=== PATIENT | male | born 1980 | race Asian ===

== ENCOUNTER 2017-07-23 13:15 | Emergency (ER) | payer OTHER ==
--- NOTE | 2017-07-23 13:50 | ER Document Report ---
ED Substance Abuse / Acc. OD - General Chief Complaint: Drug Abuse Stated Complaint: POSSIBLE OVERDOSE Time Seen by Provider: 07/23/17 13:33 Notes: The patient is a 36-year-old male, polysubstance abuser, presents after he was found unresponsive by his mom 1 hour prior to arrival. He used cocaine and heroin. When EMS arrived, he was more awake. Patient denies any new drug dealers, increased bags of heroin or coke or any fentanyl use. Patient is awake and said that he follows with [facility] and is trying to get into rehab. Mom is at bedside and said that he keeps saying that he will stop using drugs, but he never does. Patient denies suicidal ideation, homicidal ideation, chest pain , shortness of breath, nausea, vomiting, diarrhea or constipation. TRAVEL OUTSIDE OF THE [place] IN LAST 30 DAYS: No - Related Data Allergies/Adverse Reactions: No Known Allergies Allergy (Verified 05/06/14 18:48) Past Medical History - General Information source: Patient, Parent - Social History Smoking Status: Current Every Day Smoker Chew tobacco use (# tins/day): No Frequency of alcohol use: Occasional Drug Abuse: Cocaine, Heroin Family History: Reviewed & Not Pertinent Patient has suicidal ideation: No Patient has homicidal ideation: No - Past Medical History Cardiac Medical History: Reports: Hx Hypertension Renal/ Medical History: Denies: Hx Peritoneal Dialysis Psychiatric Medical History: Reports: Hx Depression Surgical Hx: Negative Review of Systems - Review of Systems Notes: REVIEW OF SYSTEMS: CONSTITUTIONAL: -fevers, -chills EENT: -eye pain, -difficulty swallowing, -nasal congestion CARDIOVASCULAR:-chest pain, -syncope. RESPIRATORY: -cough, -SOB GASTROINTESTINAL: -abdominal pain, - nausea, -vomiting, -diarrhea GENITOURINARY: -dysuria, -hematuria MUSCULOSKELETAL: -back pain, -neck pain SKIN: -rash or skin lesions. HEMATOLOGIC: -easy bruising or bleeding. LYMPHATIC: -swollen, enlarged glands. NEUROLOGICAL: -altered mental status or loss of consciousness, -headache, - neurologic symptoms PSYCHIATRIC: -anxiety, -depression. ALL OTHER SYSTEMS REVIEWED AND NEGATIVE. Physical Exam - Vital signs Vitals: Temp Pulse Resp BP Pulse Ox 98.3 F 16 L 106 H 104/73 96 07/23/17 13:27 07/23/17 13:27 07/23/17 13:27 07/23/17 13:27 07/23/17 13:27 - Notes Notes: PHYSICAL EXAMINATION: GENERAL: Well-appearing, well-nourished and in no acute distress. HEAD: Atraumatic, normocephalic. EYES: Pupils equal round and reactive to light, extraocular movements intact, sclera anicteric, conjunctiva are normal. ENT: nares patent, oropharynx clear without exudates. Moist mucous membranes. NECK: Normal range of motion, supple without lymphadenopathy LUNGS: Breath sounds clear to auscultation bilaterally and equal. No wheezes rales or rhonchi. HEART: Regular rate and rhythm without murmurs ABDOMEN: Soft, nontender, normoactive bowel sounds. No guarding, no rebound. No masses appreciated. EXTREMITIES: Normal range of motion, no pitting or edema. No cyanosis. NEUROLOGICAL: Cranial nerves grossly intact. Normal speech, normal gait. Normal sensory and motor exams. PSYCH: Normal mood, normal affect. SKIN: Warm, Dry, normal turgor, no rashes or lesions noted. Course - Re-evaluation Re-evalutation: 07/23/17 15:08 Pt monitored in the ER and he is back to baseline. He is not sleepy and has not had any apneic or hypoxic episodes. Patient said that he was not trying to kill himself and that he was only trying to get high. Urged patient to obtain detox help and gave [facility] referral. Also provided mom with a prescription of Narcan and instructed her on how to use Narcan. - Vital Signs Vital signs: Temp Pulse Resp BP Pulse Ox 98.3 F 16 L 15 100/70 97 07/23/17 13:27 07/23/17 13:27 07/23/17 14:30 07/23/17 14:30 07/23/17 14:30 Discharge - Discharge Clinical Impression: Polysubstance abuse Condition: Stable Disposition: HOME, SELF-CARE Additional Instructions: COCAINE ABUSE: Cocaine causes many dangerous medical problems. Problems can occur even with "usual" amounts. Cocaine affects judgement, creating a sense of invulnerability. Cocaine users often make bad decisions that seem "great" at the time. Most cocaine users eventually will be hurt by bad job performance, damaged personal relations, crime, and unsafe sexual practices. Toxic effects of cocaine can include seizures, hallucinations, delusions, high blood pressure, heart damage, or sudden . There's always the risk of a "bad batch." But heart attacks, brain hemorrhages, or cardiac arrest can occur unpredictably even with "normal" use. Injection of cocaine is risky for abscesses, endocarditis (heart infection) , pneumonia, and AIDS. Withdrawal from cocaine often causes anxiety and drug cravings. Some users become paranoid and psychotic. Many treatment programs are available, but you must make the decision to quit. Medication can be prescribed to control the symptoms of cocaine toxicity (beta blockers or benzodiazepines). Withdrawal symptoms may require tranquilizers. NARCOTIC / OPIOD ABUSE: Narcotics and opiods are pain-relieving drugs that are often abused. They are addicting. Narcotics cause euphoria, but it often takes increasing amounts to "feel good" and avoid withdrawal symptoms. Overdose of narcotics causes small pupils, coma, and decreased breathing. It's a common cause of . Purity of street narcotics is unpredictable. Injection of narcotics is risky for abscesses, endocarditis (heart infection), pneumonia, and AIDS. Withdrawal from narcotics causes goose bumps, watery mouth, sweating, nasal congestion, muscle aches, abdominal cramps, vomiting, and diarrhea. There 's often restlessness and confusion. Treatment programs are available, but you must make the decision to quit. Medication (such as clonidine) can be prescribed to control the symptoms of withdrawal. OVERDOSE / INGESTION: You have taken more medication than you should have. After your evaluation and care, it is felt that your overdose is not likely to be harmful or of any significant consequences to you and you are being discharged. In the future, you should be careful not to take more medications than what is prescribed for you. Although your overdose does not seem to be of any danger to you at this time, if you develop any unusual or unexpected symptoms after your discharge, you should return to the Emergency Department immediately for re-evaluation. INSTRUCTIONS FOR HOME CARE FOLLOWING DRUG OVERDOSAGE: The doctor feels it's safe for you to go home. You will need to be observed. If charcoal and a laxative was given to you, expect some loose black stools soon. Take no medications unless approved by a physician, including alcohol. If drowsy, lie on your stomach or side for sleeping to avoid aspiration if vomiting occurs. Take only liquids by mouth until there is no more nausea. FOR THE OBSERVER: Observe the patient for the next 24 hours and call or go to the hospital if any of the following are noted: prolonged or repeated vomiting, difficulty in arousing, convulsions (seizures or fits), fever, persistent cough, breathing that is too slow or too rapid, or confused or bizarre behavior. If a counselling visit has been arranged, make sure the patient attends. Call the physician or poison control if you have questions. FOLLOW-UP CARE: If you have been referred to a physician for follow-up care, call the physician s office for an appointment as you were instructed or within the next two days. If you experience worsening or a significant change in your symptoms, notify the physician immediately or return to the Emergency Department at any time for re-evaluation. Prescriptions: Naloxone HCl [Narcan] 4 mg NS ONCE PRN #1 unit PRN Reason: Referrals: [facility] [Outside] - Follow up as needed
[2017-07-23 15:16] VITALS: BP 98/70
== END 2017-07-23 15:04 | disposition home or self-care (01) ==
LOC: ER 13:15
DX: F19.10 Other psychoactive substance abuse, uncomplicated (principal); F17.200 Nicotine dependence, unspecified, uncomplicated
CPT/HCPCS: 99285

== ENCOUNTER 2017-11-01 17:18 | Emergency (ER) | payer SELFPAY ==
[2017-11-01 18:18] LABS: ABSOLUTE LYMPHOCYTES (AUTO) 1.1 10^3/uL (0.5-4.7); ABSOLUTE MONOCYTES (AUTO) 0.4 10^3/uL (0.1-1.4); ABSOLUTE NEUT (AUTO) 3.8 10^3/uL (1.7-8.2); BASOPHILS % (AUTO) 0.4 % (0-2); EOSINOPHILS % (AUTO) 0.6 % (0-6); HEMATOCRIT 41.7 % (37.9-51.0); HEMOGLOBIN 14.3 g/dL (13.5-17.0); HGB HCT DIFFERENCE 1.2; LYMPHOCYTES % (AUTO) 20.8 % (13-45); MEAN CORPUSCULAR HEMOGLOBIN 30.8 pg (27.0-33.4); MEAN CORPUSCULAR HGB CONC 34.2 g/dL (32.0-36.0); MEAN CORPUSCULAR VOLUME 90 fl (80-97); MONOCYTES % (AUTO) 8.1 % (3-13); RED BLOOD COUNT 4.63 10^6/uL (4.35-5.55); RED CELL DISTRIBUTION WIDTH 13.1 % (11.5-14.0); SEGMENTED NEUTROPHILS % (AUTO) 70.1 % (42-78); WHITE BLOOD COUNT 5.4 10^3/uL (4.0-10.5)
--- NOTE | 2017-11-01 18:22 | ER Document Report ---
ED Psych Disorder / Suicide <BEATRICE VILLA - Last Filed: 11/02/17 11:06> <JEFF BAUTISTA - Last Filed: 11/02/17 11:30> - General Mode of Arrival: Medic Information source: Patient, Relative - Mother and younger brother Cannot obtain history due to: Other - Agitated TRAVEL OUTSIDE OF THE [place] IN LAST 30 DAYS: No - HPI Patient complains to provider of: Agitated, Bizarre behavior, Hallucinating, Overdose Onset: This morning Onset was: Cannot confirm Quality of pain: No pain Suicide Risk Factors: Hallucinations, Schizophrenia, Substance abuse Overdose of: Other - Seroquel Normal mood: No - Patient is agitated Associated symptoms: Agitated, Anxious, Irritable Similar symptoms previously: No Recently seen / treated by doctor: No <ALEXIA GUZMAN - Last Filed: 11/04/17 05:50> - General Chief Complaint: Psych Problem Stated Complaint: PSYCHE EVAL Time Seen by Provider: 11/01/17 18:21 - Related Data Allergies/Adverse Reactions: No Known Allergies Allergy (Verified 11/01/17 17:19) Home Medications: Current Home Medications Fluoxetine HCl [Prozac 20 mg Capsule] 60 mg PO DAILY 11/01/17 [History] Lisinopril [Prinivil] 20 mg PO DAILY 11/01/17 [History] Olanzapine [Zyprexa] 15 mg PO QHS 11/01/17 [History] Quetiapine Fumarate [Seroquel] 100 mg PO HSP PRN 11/01/17 [History] Past Medical History - General Information source: Patient, Relative - Social History Smoking Status: Current Every Day Smoker Cigarette use (# per day): Yes Smoking Education Provided: No - Patient not mentally stabilized for this discussion Frequency of alcohol use: Occasional Drug Abuse: Cocaine Lives with: Family Family History: Reviewed & Not Pertinent Patient has suicidal ideation: No Patient has homicidal ideation: No - Past Medical History Cardiac Medical History: Reports: Hx Hypertension Pulmonary Medical History: Reports: None EENT Medical History: Reports: None Endocrine Medical History: Reports: None Renal/ Medical History: Reports: None. Denies: Hx Peritoneal Dialysis Malignancy Medical History: Reports None GI Medical History: Reports: None Musculoskeltal Medical History: Reports None Skin Medical History: Reports None Psychiatric Medical History: Reports: Hx Depression, Hx Schizophrenia Traumatic Medical History: Reports: None Infectious Medical History: Reports: None Past Surgical History: Reports: None <NANO GUZMANE E - Last Filed: 11/04/17 05:50> Review of Systems - Review of Systems -: Yes ROS unobtainable due to patient's medical condition <NANO GUZMANE E - Last Filed: 11/04/17 05:50> Physical Exam <DAISYBEATRICE - Last Filed: 11/02/17 11:06> <JEFF BAUTISTA - Last Filed: 11/02/17 11:30> <JAYDON GUZMANLENE E - Last Filed: 11/04/17 05:50> - Vital signs Vitals: Pulse Ox 97 11/01/17 17:58 Heart rate 101 pulse ox 99 RA bp117/75 (NANO GUZMANE Tessa) - Notes Notes: PHYSICAL EXAMINATION: GENERAL: It is in bed admitting agitation with jerky movements of his torso arms and legs. Nontoxic-appearing HEAD: Atraumatic, normocephalic. EYES: Pupils equal round and reactive to light, extraocular movements intact, sclera anicteric, conjunctiva are normal. ENT: Nares patent, oropharynx clear without exudates. Moist mucous membranes. NECK: Normal range of motion, supple without lymphadenopathy LUNGS: Breath sounds clear to auscultation bilaterally and equal. No wheezes rales or rhonchi. HEART: Tachy rate and rhythm without murmurs ABDOMEN: Soft, nontender, nondistended abdomen. No guarding, no rebound. No masses appreciated. Musculoskeletal: Normal range of motion, no pitting or edema. No cyanosis. NEUROLOGICAL: Cranial nerves grossly intact. Normal speech. Normal sensory. PSYCH: Patient is cooperative and answering questions. He also is agitated, flailing about in bed. SKIN: Warm, dry, normal turgor, no rashes or lesions noted. (NANO GUZMANE E) Course - Laboratory Result Diagrams: 11/01/17 17:53 11/01/17 17:53 <NICBEATRICE SANTOYO - Last Filed: 11/02/17 11:06> - Laboratory Result Diagrams: 11/01/17 17:53 11/01/17 17:53 <JEFF BAUTISTA - Last Filed: 11/02/17 11:30> - Laboratory Result Diagrams: 11/01/17 17:53 11/01/17 17:53 - EKG Interpretation by Me EKG shows normal: Sinus rhythm Rate: Tachycardia Voltage: Increased voltage, Consistant with LVH <ALEXIA GUZMAN - Last Filed: 11/04/17 05:50> - Re-evaluation Re-evalutation: 11/01/17 21:23 The patient nor the family knew the name of the medication that the patient took 8 pills of prior to arrival today. I did send mom home to get his pills. When she presented they were all stuffed into 1 bottle except for his lisinopril which is in a separate bottle. The pill was round yellow with 261 on and when I looked it up it was Seroquel. I did call poison control and I talked to them. They said that he was having dystonic reaction most likely with his jerky body movements. They said benzodiazepines would be a good choice to medicate him with. He also said he was at risk for seizure. At this time patient is quietly laying in bed after 2 doses of Ativan. He is hooked up to a surveillance system monitor his vital signs stable. I explained to his mother and his brother that he will have to see the psychiatrist in the morning. (ALEXIA GUZMAN) - Vital Signs Vital signs: Temp Pulse Resp BP Pulse Ox 97.8 F 88 16 120/75 100 11/02/17 11:41 11/02/17 11:41 11/02/17 11:41 11/02/17 11:41 11/02/17 11:41 - Laboratory Laboratory results interpreted by me: 11/01/17 11/01/17 17:53 21:25 Potassium 3.5 L Glucose 123 H AST 14 L Total Protein 8.4 H Urine Blood MODERATE H Salicylates < 1.0 L Acetaminophen < 10 L Critical Care Note <BEATRICE VILLA - Last Filed: 11/02/17 11:06> <JEFF BAUTISTA - Last Filed: 11/02/17 11:30> - Critical Care Note Total time excluding time spent on procedures (mins): 30 <ALEXIA GUZMAN - Last Filed: 11/04/17 05:50> - Critical Care Note Comments: Critical care time for continual reassessment of the patient, looking up the pill identification for his overdose, discussions with the patient's mother and brother, discussions with poison control and review of old records. (ALEXIA GUZMAN) Discharge <BEATRICE VILLA - Last Filed: 11/02/17 11:06> <MICHELEJEFF - Last Filed: 11/02/17 11:30> <ALEXIA GUZMAN - Last Filed: 11/04/17 05:50> - Discharge Clinical Impression: Overdose, Hallucinations Condition: Stable Disposition: HOME, SELF-CARE Additional Instructions: Overdose / Ingestion You have taken more medication than you should have. After your evaluation and care, it is felt that your overdose is not likely to be harmful or of any significant consequences to you and you are being discharged. In the future, you should be careful not to take more medications than what is prescribed for you. Although your overdose does not seem to be of any danger to you at this time, if you develop any unusual or unexpected symptoms after your discharge, you should return to the Emergency Department immediately for re-evaluation. Hallucinations You seem to be having hallucinations. Hallucinations are seeing, hearing, or feeling things that don't exist. These symptoms commonly occur with drug abuse and schizophrenia. Drugs like PCP, LSD, MDMA, peyote, and "psychedelic mushrooms" can cause frightening hallucinations. Users of methamphetamine or crack cocaine often see and feel bugs crawling on their skin. Patients with schizophrenia may hear voices that no one else can hear. The delusions of schizophrenia often involve conspiracies or relationships that are not real. When symptoms are due to drug abuse, the mental state usually improves as the drug wears off. Someone you trust should be with you until you are better, to protect you and calm your fears. Tranquilizer medicine is helpful at controlling hallucinations, anxiety, and deluded thoughts. Get a proper diet and enough sleep. Most patients do very well when they get proper medical treatment and social support. You should return at once if your symptoms get worse, if you are having suicidal thoughts or thoughts about hurting others, or if you feel that you are in danger. Follow-up: You have an appointment scheduled at your existing outpatient provider, [facility], on 11/09/17. You should go directly from the emergency department to [facility] as a walk in upon discharge. If your symptoms continue or worsen you should contact you physician(s), utilize mobile crisis or return to the emergency department. Forms: Return to Work Referrals: [facility] [Provider Group] - 11/02/17 12:00 pm
[2017-11-01] MEDS ORDERED: LORAZEPAM INJ 2 MG/1 ML VIAL IV ONE ×2 (18:35→20:19)
[2017-11-01 18:40] LABS: ALANINE AMINOTRANSFERASE 34 U/L (21-72); ALKALINE PHOSPHATASE 69 U/L (38-126); ANION GAP 18 (5-19); ASPARTATE AMINO TRANSFERASE 14 U/L (17-59); BILIRUBIN,DIRECT 0.4 mg/dL (0.0-0.4); BILIRUBIN,TOTAL 0.8 mg/dL (0.2-1.3); BLOOD UREA NITROGEN 12 mg/dL (7-20); CALCIUM 9.8 mg/dL (8.4-10.2); CARBON DIOXIDE 23 mmol/L (22-30); CHLORIDE 102 mmol/L (98-107); CREATININE RESULT 0.72 mg/dL (0.52-1.25); GLUCOSE 123 mg/dL (75-110); POTASSIUM 3.5 mmol/L (3.6-5.0); SODIUM 142.5 mmol/L (137-145); TOTAL PROTEIN 8.4 g/dL (6.3-8.2)
[2017-11-01 18:41] LABS: ALCOHOL < 10 mg/dL (NONE DETECTED)
[2017-11-01 21:57] LABS: APPEARANCE,URINE CLEAR; BILIRUBIN,URINE NEGATIVE (NEGATIVE); GLUCOSE, URINE NEGATIVE (NEGATIVE); KETONES,URINE NEGATIVE (NEGATIVE); LEUKOCYTE ESTERASE,URINE NEGATIVE (NEGATIVE); NITRITE,URINE NEGATIVE (NEGATIVE); PROTEIN,URINE NEGATIVE (NEGATIVE); URINE SPECIFIC GRAVITY 1.003; UROBILINOGEN,URINE NEGATIVE mg/dL (<2.0)
[2017-11-01 22:10] LABS: URINE BARBITURATES SCREEN NEGATIVE; URINE METHADONE SCREEN NEGATIVE; URINE PHENCYCLIDINE SCREEN NEGATIVE
[2017-11-01 22:56] LABS: URINE OPIATES LOW UNCONFIRMED POSITIVE
--- NOTE | 2017-11-01 23:11 | EKG REPORT ---
SEVERITY:- ABNORMAL ECG - SINUS TACHYCARDIA PROBABLE LEFT VENTRICULAR HYPERTROPHY : Confirmed by: Michelle Becker 01-Nov-2017 23:10:33
[2017-11-01] MEDS ORDERED: RINGERS SOLUTION,LACTATED 1,000 ML IV ONE (23:51)
--- NOTE | 2017-11-02 11:17 | ER Document Report ---
Doctor's Note Notes: 11/02/17 11:15 Rounds: Chart reviewed and patient interviewed. Patient is sleeping, but awakens easily. Carries on a normal conversation. Says he took excess Seroquel because he wanted to sleep. Does not think it helped much. Patient has a history of schizophrenia. Has been hearing hallucinations. Vital signs were all normal. Labs were essentially normal. Patient appears to be medically stable for transfer or discharge. Elie Lane MD
[2017-11-02 11:42] VITALS: BP 120/75
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
== END 2017-11-02 11:42 | disposition home or self-care (01) ==
LOC: ER 17:18
DX: T43.591A Poisoning by other antipsychotics and neuroleptics, accidental (unintentional), initial encounter (principal); R44.3 Hallucinations, unspecified; F43.10 Post-traumatic stress disorder, unspecified; F17.210 Nicotine dependence, cigarettes, uncomplicated; I10 Essential (primary) hypertension
CPT/HCPCS: 93005; 96376; 99285; 96375; 96365; 36415; 80307 ×4; 83735; 85025; 80053; 81001; 93010; J2060; J7120

== ENCOUNTER 2019-02-01 10:52 | Emergency (ER) | payer SELFPAY ==
[2019-02-01] MEDS ORDERED: ACETAMINOPHEN 325 MG TABLET PO ONE (11:44)
--- NOTE | 2019-02-01 11:49 | ER Document Report ---
ED Medical Screen (RME) - General Chief Complaint: Head Injury Stated Complaint: HEAD INJURY Time Seen by Provider: 02/01/19 11:47 TRAVEL OUTSIDE OF THE [place] IN LAST 30 DAYS: No - HPI Notes: 02/01/19 11:47 Patient said that 2 days ago he was walking and he slipped and fell and hit his head and passed out. Since then his head has been bothering him and he has been having severe headache. He said the headache is associated with blurry vision, nausea and vomiting. Physical exam apart from tenderness to the left episcopal area of the head is unremarkable. There is no laceration to the scalp. - Related Data Allergies/Adverse Reactions: No Known Allergies Allergy (Verified 02/01/19 11:11) Past Medical History - Social History Chew tobacco use (# tins/day): No Frequency of alcohol use: Occasional Drug Abuse: None - Past Medical History Cardiac Medical History: Reports: Hx Hypertension Renal/ Medical History: Denies: Hx Peritoneal Dialysis Psychiatric Medical History: Reports: Hx Depression, Hx Schizophrenia Physical Exam - Vital signs Vitals: Temp Pulse Resp BP Pulse Ox 99.5 F 100 16 144/102 H 99 02/01/19 11:20 02/01/19 11:20 02/01/19 11:20 02/01/19 11:20 02/01/19 11:20 Course - Vital Signs Vital signs: Temp Pulse Resp BP Pulse Ox 99.5 F 100 16 144/102 H 99 02/01/19 11:20 02/01/19 11:20 02/01/19 11:20 02/01/19 11:20 02/01/19 11:20
[2019-02-01 12:23] LABS: ABSOLUTE EOSINOPHILS # (AUTO) 0.2 10^3/uL (0.0-0.6); ABSOLUTE MONOCYTES (AUTO) 0.4 10^3/uL (0.1-1.4); ABSOLUTE NEUT (AUTO) 3.8 10^3/uL (1.7-8.2); BASOPHILS % (AUTO) 0.2 % (0-2); EOSINOPHILS % (AUTO) 3.8 % (0-6); HEMATOCRIT 38.4 % (37.9-51.0); HEMOGLOBIN 13.4 g/dL (13.5-17.0); LYMPHOCYTES % (AUTO) 18.3 % (13-45); MEAN CORPUSCULAR HEMOGLOBIN 32.8 pg (27.0-33.4); MEAN CORPUSCULAR VOLUME 94 fl (80-97); MONOCYTES % (AUTO) 6.9 % (3-13); PLATELET COUNT 252 10^3/uL (150-450); RED BLOOD COUNT 4.09 10^6/uL (4.35-5.55); RED CELL DISTRIBUTION WIDTH 12.6 % (11.5-14.0); SEGMENTED NEUTROPHILS % (AUTO) 70.8 % (42-78); TOTAL CELLS COUNTED % (AUTO) 100 %; WHITE BLOOD COUNT 5.3 10^3/uL (4.0-10.5)
[2019-02-01 12:26] LABS: PARTIAL THROMBOPLASTIN TIME 25.8 SEC (23.5-35.8); PROTHROMBIN TIME 12.6 SEC (11.4-15.4)
--- NOTE | 2019-02-01 12:36 | RADIOLOGY REPORT (SQ) ---
EXAM DESCRIPTION: CT HEAD WITHOUT COMPLETED DATE/TIME: 02/01/2019 12:27 pm REASON FOR STUDY: Head injury COMPARISON: None. TECHNIQUE: Axial images acquired through the brain without intravenous contrast. Images reviewed wi th bone, brain and subdural windows. Additional sagittal and coronal reconstructions were generated. Images stored on PACS. All CT scanners at this facility use dose modulation, iterative reconstruction, and/or weight based d osing when appropriate to reduce radiation dose to as low as reasonably achievable (ALARA). [facility]: Dose Right [facility]: CareDose [facility]: Dose Right [facility]: Teradose 4D [facility]: Online-OR RADIATION DOSE: CT Rad equipment meets quality standard of care and radiation dose reduction techniq ues were employed. CTDIvol: 53.2 mGy. DLP: 1097 mGy-cm. mGy. LIMITATIONS: None. FINDINGS: VENTRICLES: Normal size and contour. CEREBRUM: No masses. No hemorrhage. No midline shift. No evidence for acute infarction. Normal gra y/white matter differentiation. No areas of low density in the white matter. CEREBELLUM: No masses. No hemorrhage. No alteration of density. No evidence for acute infarction. EXTRAAXIAL SPACES: No fluid collections. No masses. ORBITS AND GLOBE: No intra- or extraconal masses. Normal contour of globe without masses. CALVARIUM: No fracture. PARANASAL SINUSES: No fluid or mucosal thickening. SOFT TISSUES: No mass or hematoma. OTHER: No other significant finding. IMPRESSION: No acute intracranial pathology. EVIDENCE OF ACUTE STROKE: NO. COMMENT: Quality ID # [id number]: Final reports with documentation of one or more dose reduction techniques (e.g., Automated exposure control, adjustment of the mA and/or kV according to patient size, use of iterative reconstruction technique) TECHNICAL DOCUMENTATION: JOB ID: [id number] [employer]- All Rights Reserved Reading location - IP/workstation name: [email or web address]
[2019-02-01 12:42] LABS: ALANINE AMINOTRANSFERASE 58 U/L (21-72); ALBUMIN 4.7 g/dL (3.5-5.0); ALKALINE PHOSPHATASE 47 U/L (38-126); ANION GAP 10 (5-19); ASPARTATE AMINO TRANSFERASE 40 U/L (17-59); BILIRUBIN,DIRECT 0.3 mg/dL (0.0-0.4); BILIRUBIN,TOTAL 0.6 mg/dL (0.2-1.3); BLOOD UREA NITROGEN 7 mg/dL (7-20); CALCIUM 9.9 mg/dL (8.4-10.2); CARBON DIOXIDE 28 mmol/L (22-30); CHLORIDE 100 mmol/L (98-107); GLUCOSE 107 mg/dL (75-110); POTASSIUM 4.2 mmol/L (3.6-5.0); SODIUM 138.2 mmol/L (137-145); TOTAL PROTEIN 7.1 g/dL (6.3-8.2)
--- NOTE | 2019-02-01 14:33 | ER Document Report ---
HPI - HPI Time Seen by Provider: 02/01/19 11:47 Pain Level: 4 Notes: Patient is a 38-year-old male no significant past medical history who presents to the emergency department status post head injury 2 days ago complaining of mild headache and intermittent blurring of his vision. Patient states that he hit the left upper side of his head. Patient states that at this time he currently does not have any pain or issues with his vision. He does not wear any contacts or glasses. Patient states that he tripped 2 days ago and hit his head off of a barstool. Patient states he did not have complete loss of consciousness as was otherwise stated in a previous note. Patient states that he did have one episode of nausea and vomiting thereafter, but that has since resolved. Since then he has been eating and drinking without difficulty. He is urinating normally and having normal bowel movements. He has no other concerns or complaints. Denies any fever, neck pain, changes in vision/speech/mentation/hearing, URI, sore throat, chest pain, palpitations, syncope, cough, shortness of breath, wheeze, dyspnea, abdominal pain, current nausea/vomiting/diarrhea, urinary retention, dysuria, hematuria, loss of control of bowel or bladder, numbness/tingling, saddle anesthesia, muscle paralysis/weakness, or rash. - ROS Systems Reviewed and Negative: Yes All other systems reviewed and negative - DERM Skin Color: Normal Past Medical History - Social History Smoking Status: Current Every Day Smoker Chew tobacco use (# tins/day): No Frequency of alcohol use: Occasional Drug Abuse: None Family History: Reviewed & Not Pertinent Patient has suicidal ideation: No Patient has homicidal ideation: No - Past Medical History Cardiac Medical History: Reports: Hx Hypertension Renal/ Medical History: Denies: Hx Peritoneal Dialysis Psychiatric Medical History: Reports: Hx Depression, Hx Schizophrenia Vertical Provider Document - CONSTITUTIONAL Agree With Documented VS: Yes Notes: PHYSICAL EXAMINATION: GENERAL: Well-appearing, well-nourished and in no acute distress. A&Ox4. Answers questions appropriately. HEAD: Atraumatic, normocephalic. Non-tender. No bogginess/hematoma/bermeo sign . EYES: Pupils equal round and reactive to light, extraocular movements intact, sclera anicteric, conjunctiva are normal. No nystagmus. vis mejia intact. Vision 20/30 b/l and individually performed by myself at bedside. No orbital/facial tenderness. No raccoon eyes. ENT: EAC clear b/l. TM's intact b/l without erythema, fluid, or perforation. Nares patent and without discharge. oropharynx clear without exudates. No tonsilar hypertrophy or erythema. Moist mucous membranes. No sinus tenderness. No hemotympanum/CSF discharge noted. NECK: Normal range of motion, supple without lymphadenopathy. No rigidity/meningismus. No midline tenderness. LUNGS: Breath sounds clear to auscultation bilaterally and equal. No wheezes rales or rhonchi. HEART: Regular rate and rhythm without murmurs, rubs, gallops. ABDOMEN: Soft, nontender, nondistended abdomen. No guarding, no rebound. N ormal bowel sounds present. No CVA tenderness bilaterally. Musculoskeletal: Ext's b/l: FROM to passive/active. Strength 5+/5. No deficits noted. No bony tenderness of extremities. Extremities: No cyanosis, clubbing, or edema b/l. Peripheral pulses 2+. Capillary refill less than 2 seconds. NEUROLOGICAL: NIH 0. GCS 15. Cranial nerves grossly intact. Normal speech, normal gait. Normal sensory, motor exams. Reflexes 2+ b/l. ANNA's negative. Pronator drift negative. Heel/wilhelm, finger/nose wnl. Rhomberg neg. PSYCH: Normal mood, normal affect. SKIN: Warm, Dry, normal turgor, no rashes or lesions noted. - INFECTION CONTROL TRAVEL OUTSIDE OF THE [place] IN LAST 30 DAYS: No Course - Re-evaluation Re-evalutation: 02/01/19 14:30 Patient is an afebrile, well-hydrated, 38-year-old male who presents to the ED with a head injury with intermittent PEREZ's that I suspect to be secondary to post concussive syndrome. Vitals are acceptable without any significant tachycardia, tachypnea, or hypoxia. PE is otherwise unremarkable for any focal neurological deficits. NIH 0, GCS 15, cranial nerves grossly intact, NEXUS negative. CBC, CMP, CT head unremarkable. Patient was given tylenol today. Patient states that he is feeling much better and would like to go home. He is nontoxic- appearing and is tolerating p.o. without any difficulties. Low suspicion for any acute glaucoma, temporal arteritis, meningitis, intracranial hemorrhage, ischemic stroke, or fracture at this time. Patient is aware that this condition can change from initial presentation and that he needs to monitor symptoms closely for any acute changes. Recheck with your PCM/neurologist in 3-5 days. Return to the ED with any worsening/concerning symptoms otherwise as reviewed in discharge. Patient is in agreement. - Vital Signs Vital signs: Temp Pulse Resp BP Pulse Ox 99.5 F 100 16 144/102 H 99 02/01/19 11:20 02/01/19 11:20 02/01/19 11:20 02/01/19 11:20 02/01/19 11:20 - Laboratory Result Diagrams: 02/01/19 12:00 02/01/19 12:00 Laboratory results interpreted by me: 02/01/19 12:00 RBC 4.09 L Hgb 13.4 L Discharge - Discharge Clinical Impression: Post concussion syndrome Head injury Qualifiers: Encounter type: initial encounter Qualified Code(s): S09.90XA - Unspecified injury of head, initial encounter Condition: Stable Disposition: HOME, SELF-CARE Instructions: Post-Concussion Syndrome ([facility]) Additional Instructions: You have been evaluated in the Emergency Department for a head injury and have been diagnosed with a concussion. Concussions can be associated with any of the following symptoms: confusion, sleepiness, memory deficits, nausea, general fatigue, or headaches. The only way to treat these symptoms is complete brain rest. Please follow-up with both your primary physician and a Neurologist in 1-2 weeks to be rechecked. Return to the ER immediately if you experience episodes of passing out, having an unstable or wobbly gait, have uncontrollable headaches or nausea, have blindness/vision changes, or have any other concerning symptoms. Brain Rest: 1. No activity/work/school or phone/TV/computer for at least one week. 2. After a week you can slowly incorporate small tasks like brushing your teeth and other small activities over a couple days. 3. If symptoms return, go back to step 1 and repeat; if no further symptoms, progress to step 4. 4. After small tasks can be performed without symptoms, slowly introduce more rigorous tasks like cooking, cleaning, etc. over 2-3 days. 5. If symptoms return, go back to step 1 and repeat; if no further symptoms, progress to step 6. 6. If rigorous tasks can be performed without symptoms, you may resume normal daily activity. 7. At any point, if symptoms return, return to strict brain rest and start the process over. Return to the ED with any worsening symptoms and/or development of fever, headache, changes in behavior/mentation/vision/speech, chest pain, palpitations, syncope, shortness of breath, trouble breathing, abdominal pain, n/v/d, blood in stool/urine, loss of control of bowel/bladder, urinary retention, muscle weakness/paralysis, saddle anesthesia, numbness/tingling, or other worsening symptoms that are concerning to you. Forms: Elevated Blood Pressure, Smoking Cessation Education Referrals: TASHI DEMPSEY MD [NO LOCAL MD] - Follow up as needed
[2019-02-01 14:50] VITALS: BP 120/75
== END 2019-02-01 14:46 | disposition home or self-care (01) ==
LOC: ER 10:52
DX: F07.81 Postconcussional syndrome (principal); S09.90XA Unspecified injury of head, initial encounter; W01.198A Fall on same level from slipping, tripping and stumbling with subsequent striking against other object, initial encounter; F17.200 Nicotine dependence, unspecified, uncomplicated; I10 Essential (primary) hypertension
CPT/HCPCS: 36415; 70450; 80053; 85025; 85610; 85730; 99284